=== PATIENT | female | born 1970 ===

== ENCOUNTER 2021-12-05 09:35 | Emergency (ER) | payer MEDICAID ==
[~2021-12-05] VITALS: Ht 167.6 cm; Wt 140.9 kg
[2021-12-05 09:39] VITALS: BP 104/71
[2021-12-05] MEDS ORDERED: UNK HTN MED PO (09:42)
[2021-12-05] MEDS ORDERED: DiphenhydrAMINE HCL 50 MG/ML VIAL IM ONE (09:45)
[2021-12-05] MEDS ORDERED: ACETAMINOPHEN 500 MG TABLET PO ONE (09:45)
[2021-12-05] MEDS ORDERED: PredniSONE 20 MG TABLET PO ONE (09:45)
[2021-12-05] MEDS ORDERED: ACET-66 PO (09:49)
[2021-12-05] MEDS ORDERED: DIPH25TA20 PO (09:49)
[2021-12-05] MEDS ORDERED: TRIA15CR49 TP (09:49)
== END 2021-12-05 10:35 | disposition home or self-care (01) ==
LOC: EMS 09:35
DX: T78.40XA Allergy, unspecified, initial encounter (principal); W57.XXXA Bitten or stung by nonvenomous insect and other nonvenomous arthropods, initial encounter
CPT/HCPCS: 96372; 99283; J1200; J7512